=== PATIENT | male | born 1955 | race Caucasian/White ===

== ENCOUNTER 2018-09-25 16:30 | Inpatient (IN) | payer OTHER ==
[~2018-09-25] VITALS: Ht 177.8 cm; Wt 94.3 kg
[2018-09-25 17:05] LABS: BASO % 0 % (0-3); EOS # 0.1 x10^3/uL (0.0-0.7); EOS % 2 % (0-3); HEMATOCRIT 47.5 % (39.0-53.0); HEMOGLOBIN 15.1 g/dL (13.0-17.5); LYMPH # 0.8 x10^3/uL (1.0-4.8); LYMPH % 12 % (24-48); MEAN CORPUSCULAR HEMOGLOBIN 25 pg (25-35); MEAN CORPUSCULAR HGB CONC 32 g/dL (31-37); MEAN CORPUSCULAR VOLUME 77 fL (79-100); MONO # 0.3 x10^3/uL (0.0-1.1); MONO % 5 % (0-9); NEUT # 5.2 x10^3uL (1.8-7.7); NEUT % 81 % (31-73); PLATELET COUNT 176 x10^3/uL (140-400); RED BLOOD COUNT 6.16 x10^6/uL (4.30-5.70); RED CELL DISTRIBUTION WIDTH 17.4 % (11.5-14.5); WHITE BLOOD COUNT 6.4 x10^3/uL (4.0-11.0)
--- NOTE | 2018-09-25 17:11 | PHYS DOC ---
Past Medical History Past Medical History: Diabetes-Type II, High Cholesterol, Hypertension Past Surgical History: Tonsillectomy, Other Additional Past Surgical Histo: BACK,HAND,FOOT,ADENOIDS Alcohol Use: None Drug Use: None Adult General Chief Complaint Chief Complaint: CHEST PAIN [facility] HPI Patient is a 63 year old male who presents with of chest pain. Patient complaining of intermittent episodes of lower substernal and epigastric area pain for the last 2 days that usually repeated several times a day without relation to eating or activity or not eating. Patient complaining of aching pain without radiation, shortness of breath, nausea, palpitation, diaphoresis. Patient complaining of episodes of dizziness with severe pain. Patient rated his pain as 6/10. Patient denies history of chest pain and coronary artery disease. Patient has history of hypertension, dyslipidemia, diabetes mellitus and family history of coronary artery disease and denies smoking cigarettes or using alcohol or drugs. Review of Systems Review of Systems Constitutional: Denies fever or chills [] Eyes: Denies change in visual acuity, redness, or eye pain [] HENT: Denies nasal congestion or sore throat [] Respiratory: Denies cough or shortness of breath [] Cardiovascular: No additional information not addressed in HPI [] GI: Denies abdominal pain, nausea, vomiting, bloody stools or diarrhea [] : Denies dysuria or hematuria [] Musculoskeletal: Denies back pain or joint pain [] Integument: Denies rash or skin lesions [] Neurologic: Denies headache, focal weakness or sensory changes [] Endocrine: Denies polyuria or polydipsia [] All other systems were reviewed and found to be within normal limits, except as documented in this note. Current Medications Current Medications Current Medications Medications (Trade) Dose Ordered Sig/Angie Start Time Stop Time Status Last Admin Dose Admin Famotidine (Pepcid Vial) 20 mg 1X ONCE 09/25/18 18:30 09/25/18 18:31 DC Allergies Allergies Allergies Coded Allergies Type Severity Reaction Last Updated Verified Sulfa (Sulfonamide Antibiotics) Allergy Intermediate 09/25/18 Yes codeine Allergy Intermediate 09/25/18 Yes Physical Exam Physical Exam Constitutional: Well developed, well nourished, no acute distress, non-toxic appearance. [] HENT: Normocephalic, atraumatic, oropharynx moist. Eyes: PERRLA, EOMI, conjunctiva normal, no discharge. [] Neck: Normal range of motion, no tenderness, supple, no stridor. [] Cardiovascular:Heart rate regular rhythm, no murmur [] Lungs & Thorax: Bilateral breath sounds clear to auscultation [] Abdomen: Bowel sounds normal, soft, no tenderness, no masses, no pulsatile masses. [] Skin: Warm, dry, no erythema, no rash. [] Back: No tenderness, no CVA tenderness. [] Extremities: No tenderness, no cyanosis, no clubbing, ROM intact, no edema. [] Neurologic: Alert and oriented X 3, normal motor function, normal sensory function, no focal deficits noted. [] Psychologic: Affect normal, judgement normal, mood normal. [] Current Patient Data Vital Signs Vital Signs Date Time Temp Pulse Resp B/P (MAP) Pulse Ox O2 Delivery O2 Flow Rate FiO2 09/25/18 16:35 99.7 96 23 132/80 (97) 93 Room Air 99.7 Lab Values Laboratory Tests Test 09/25/18 16:45 White Blood Count 6.4 x10^3/uL (4.0-11.0) Red Blood Count 6.16 x10^6/uL (4.30-5.70) H Hemoglobin 15.1 g/dL (13.0-17.5) Hematocrit 47.5 % (39.0-53.0) Mean Corpuscular Volume 77 fL (79-100) L Mean Corpuscular Hemoglobin 25 pg (25-35) Mean Corpuscular Hemoglobin Concent 32 g/dL (31-37) Red Cell Distribution Width 17.4 % (11.5-14.5) H Platelet Count 176 x10^3/uL (140-400) Neutrophils (%) (Auto) 81 % (31-73) H Lymphocytes (%) (Auto) 12 % (24-48) L Monocytes (%) (Auto) 5 % (0-9) Eosinophils (%) (Auto) 2 % (0-3) Basophils (%) (Auto) 0 % (0-3) Neutrophils # (Auto) 5.2 x10^3uL (1.8-7.7) Lymphocytes # (Auto) 0.8 x10^3/uL (1.0-4.8) L Monocytes # (Auto) 0.3 x10^3/uL (0.0-1.1) Eosinophils # (Auto) 0.1 x10^3/uL (0.0-0.7) Basophils # (Auto) 0.0 x10^3/uL (0.0-0.2) Prothrombin Time 12.9 SEC (11.7-14.0) Prothrombin Time INR 1.0 (0.8-1.1) D-Dimer (Ceci) 0.49 ug/mlFEU (0.00-0.50) Sodium Level 136 mmol/L (136-145) Potassium Level 3.7 mmol/L (3.5-5.1) Chloride Level 99 mmol/L (98-107) Carbon Dioxide Level 26 mmol/L (21-32) Anion Gap 11 (6-14) Blood Urea Nitrogen 16 mg/dL (8-26) Creatinine 1.0 mg/dL (0.7-1.3) Estimated GFR (Cockcroft-Gault) 76.0 BUN/Creatinine Ratio 16 (6-20) Glucose Level 130 mg/dL (70-99) H Calcium Level 8.9 mg/dL (8.5-10.1) Total Bilirubin 0.6 mg/dL (0.2-1.0) Aspartate Amino Transferase (AST) 36 U/L (15-37) Alanine Aminotransferase (ALT) 67 U/L (16-63) H Alkaline Phosphatase 137 U/L (46-116) H Creatine Kinase 44 U/L (39-308) Troponin I Quantitative < 0.017 ng/mL (0.000-0.055) LM-Vsx-V-Type Natriuretic Peptide 30 pg/mL (0-124) Total Protein 8.0 g/dL (6.4-8.2) Albumin 3.6 g/dL (3.4-5.0) Albumin/Globulin Ratio 0.8 (1.0-1.7) L Lipase 198 U/L (73-393) Laboratory Tests 09/25/18 16:45 Laboratory Tests 09/25/18 16:45 EKG EKG EKG interpreted by me. EKG at 1636 showed normal sinus rhythm at rate of 93, left foley axis, normal MD and QT intervals, no acute ST and T-wave abnormalities. Radiology/Procedures Radiology/Procedures [facility] [address] [place] [address] IMAGING REPORT Signed PATIENT: JENNY MASON ACCOUNT: [id number] : 1955 LOCATION: ER AGE: 63 SEX: M EXAM STATUS: REG ER ORD. PHYSICIAN: JOSHUA MCDONOUGH MD REASON: intermittent episodes of epigastric pain PROCEDURE: ABDOMEN LTD ABDOMEN LTD History: Epigastric pain Comparison: None. Findings: Multiple sonographic images of the abdomen are submitted. There is no abnormality of the visualized pancreas. There is coarsening of the hepatic echotexture. Right lobe of liver measured 17.5 cm longitudinal. There is segmental visualization of the inferior vena cava. Right kidney measured 11.7 x 6 x 5.4 cm, no hydronephrosis. Gallbladder is present without intraluminal abnormality, wall thickening, pericholecystic fluid. Common bile duct is within normal limits at 0.3 cm. Impression: 1. There is hepatic steatosis. No other significant abnormality is demonstrated. Electronically signed by: Ramiro Montes MD (09/25/2018 5:21 PM) [id number] DICTATED and SIGNED BY: RAMIRO MONTES MD DATE: 09/25/181720 Chest x-ray interpreted by me and did not show acute finding. Course & Med Decision Making Course & Med Decision Making Pertinent Labs and Imaging studies reviewed. (See chart for details) Evaluation of patient in ER showed 63-year-old male patient with multiple cardiac risk factor and complaining of intermittent episodes of chest pain and sob sternal area for 2 days. Patient had unremarkable physical exam and labs except for mild elevation of liver enzymes. Patient requiring admission for further evaluation and treatment. Discussed with Dr. Hilton who is in agreement with admission. Discussed findings and plan with patient and family, who acknowledge understanding and agreement. Dragon Disclaimer Dragon Disclaimer This electronic medical record was generated, in whole or in part, using a voice recognition dictation system. Departure Departure Impression: Primary Impression: Acute chest pain Additional Impressions: Abnormal liver function tests Hepatic steatosis Disposition: ADMITTED INPATIENT (at 1834) Admitting Physician: Other (Dr. Hilton accepted admission at 1833) Condition: IMPROVED Referrals: FARZAD MILLER MD (PCP) Problem Qualifiers JOSHUA MCDONOUGH MD Sep 25, 2018 17:11
[2018-09-25 17:17] LABS: CALCIUM 8.9 mg/dL (8.5-10.1); POTASSIUM 3.7 mmol/L (3.5-5.1); PROTHROMBIN TIME PATIENT 12.9 SEC (11.7-14.0)
[2018-09-25 17:24] LABS: ALBUMIN 3.6 g/dL (3.4-5.0); ALBUMIN/GLOBULIN RATIO 0.8 (1.0-1.7); TOTAL BILIRUBIN 0.6 mg/dL (0.2-1.0)
--- NOTE | 2018-09-25 17:24 | RAD ---
ABDOMEN LTD History: Epigastric pain Comparison: None. Findings: Multiple sonographic images of the abdomen are submitted. There is no abnormality of the visualized pancreas. There is coarsening of the hepatic echotexture. Right lobe of liver measured 17.5 cm longitudinal. There is segmental visualization of the inferior vena cava. Right kidney measured 11.7 x 6 x 5.4 cm, no hydronephrosis. Gallbladder is present without intraluminal abnormality, wall thickening, pericholecystic fluid. Common bile duct is within normal limits at 0.3 cm. Impression: 1. There is hepatic steatosis. No other significant abnormality is demonstrated. Electronically signed by: Tawanda Leblanc MD (09/25/2018 5:21 PM) [id number]
[2018-09-25 17:34] LABS: D-DIMER 0.49 ug/mlFEU (0.00-0.50)
[2018-09-25] MEDS ORDERED: FAMOTIDINE 20 MG/2 ML VIAL IVP ONE (18:30)
[2018-09-25 20:05] VITALS: BP 122/77
[2018-09-25] MEDS ORDERED: LISI-338 PO (20:34)
[2018-09-25] MEDS ORDERED: ASPI-630 PO (20:34)
[2018-09-25] MEDS ORDERED: SIMV40TA3 PO (20:34)
[2018-09-25] MEDS ORDERED: DULA1.5P SQ (20:35)
[2018-09-25] MEDS ORDERED: GLIM2TAB2 PO (20:35)
[2018-09-25] MEDS ORDERED: EMPA25TA PO (20:35)
[2018-09-25] MEDS ORDERED: TEST200V3 IM (20:35)
[2018-09-25] MEDS ORDERED: METF750T2 PO (20:35)
[2018-09-25] MEDS ORDERED: SIMVASTATIN 40 MG TABLET. PO SCH (21:00)
[2018-09-25] MEDS ORDERED: METFORMIN HCL 750 MG PO SCH (21:00)
[2018-09-25] MEDS: HEPARIN for SUB-Q USE 5,000 UNIT/ML VIAL. SQ SCH (21:31)
[2018-09-25 23:00] VITALS: BP 125/74
[2018-09-26] VITALS (11 sets, daily range): BP systolic 97–145; BP diastolic 60–93
--- NOTE | 2018-09-26 00:51 | RAD ---
Chest AP portable at 1747 Reason for examination: Atraumatic chest pain at the mid sternum for 2 days. History of diabetes. Comparison is made to previous study dated 05/19/2015. The heart size is normal. Mediastinum is unremarkable. Lung ruth are clear. No acute bony abnormalities are seen. Impression: No acute cardiopulmonary disease. Electronically signed by: Yanet Chan MD (09/25/2018 11:08 PM) [facility]
[2018-09-26] MEDS: HEPARIN for SUB-Q USE 5,000 UNIT/ML VIAL. SQ SCH ×2 (06:00→14:00)
--- NOTE | 2018-09-26 06:31 | EKG ---
[facility] [address] [place] [address] Test Date: 2018-09-25 Test Time: 16:36:25 Pat Name: JENNY MASON Department: Room: 203 1 Gender: M Occupational Physician: : 1955 Requested By: JOSHUA MCDONOUGH Order Number: [id number] Reading MD: Bryson Avina Measurements Intervals [place] Rate: 93 P: 56 [place]: 176 QRS: -16 QRSD: 90 T: 30 QT: 322 QTc: 403 Interpretive Statements SINUS RHYTHM LEFTWARD AXIS Electronically Signed On 10-02-2018 13:00:24 CDT by Bryson Avina
--- NOTE | 2018-09-26 07:48 | PDOC1 ---
History and Physical Date of Admission Date of Admission DATE: 09/26/18 TIME: 07:47 Identification/Chief Complaint Chief Complaint Chest pain Source Source: Patient History of Present Illness History of Present Illness Patient is a 63 year old male w/ PMHx HTN, HLD, CTS, OA, DM who presents with of chest pain. Patient complaining of intermittent episodes of lower substernal and epigastric area pain for the last 2 days that usually repeated several times a day without relation to eating or activity or not eating. Patient complaining of aching pain without radiation, shortness of breath, nausea, palpitation, diaphoresis. Patient complaining of episodes of dizziness with severe pain. Patient rated his pain as 6/10. His first noticed symptoms when he was loading the car on Tuesday and bent over and clutched his chest. Symptoms improved and recurred throughout the day and into the next. Not always related to activity and unrelated to eating. Hgb 14.1, MCV 78, RDW 17.3, bili 0.6, AST 36, ALT 67, Alk Phos 137, lipase 198. Hepatic steatosis on US (w/ normal GB) and tender epigastrium during procedure. H/o constipation controlled by eating prunes. Has lost weight since starting Trulicity. No PUD history. No NSAID use, does take ASA 81mg QD. Going for cardiac cath today Past Medical History Cardiovascular: HTN Pulmonary: No pertinent hx CENTRAL NERVOUS SYSTEM: Carpal Tunnel Syndrome GI: Constipation Heme/Onc: No pertinent hx Hepatobiliary: No pertinent hx Psych: No pertinent hx Musculoskeletal: Osteoarthritis Infectious disease: No pertinent hx ENT: No pertinent hx Renal/: No pertinent hx Endocrine: Diabetes Dermatology: No pertinent hx Past Surgical History Past Surgical History: Tonsillectomy, Other (Right great toe amputation, traumatic) Family History Family History: Diabetes, Heart Disease, High Cholestrol, Hypertension Social History Smoke: No ALCOHOL: rare Drugs: None Current Problem List Problem List Problems Medical Problems: (1) Abnormal liver function tests Status: Acute (2) Acute chest pain Status: Acute (3) Hepatic steatosis Status: Acute Current Medications Current Medications Current Medications Famotidine (Pepcid Vial) 20 mg 1X ONCE IVP Last administered on 09/25/18at 19: 58; Start 09/25/18 at 18:30; Stop 09/25/18 at 18:31; Status DC Aspirin (Children'S Aspirin) 81 mg DAILY PO ; Start 09/26/18 at 09:00 Glimepiride (Amaryl) 2 mg BID94 PO ; Start 09/26/18 at 09:00 Non-Formulary Medication (Dulaglutide (Trulicity)) 1.5 mg WEEKLY SQ ; Start at 09:00; Status UNV Non-Formulary Medication (Empagliflozin (Jardiance)) 25 mg DAILY PO ; Start at 09:00; Status UNV Lisinopril (Prinivil) 5 mg DAILY PO ; Start 09/26/18 at 09:00 Non-Formulary Medication (Metformin Hcl (Metformin Hcl Er)) 750 mg TID PO ; Start 09/25/18 at 21:00; Status UNV Simvastatin (Zocor) 40 mg QHS PO Last administered on 09/25/18at 21:28; Start at 21:00 Testosterone Cypionate (Depo-Testosterone) 200 mg WEEKLY IM ; Start 10/02/18 at 09:00 Heparin Sodium (Porcine) (Heparin Sodium) 5,000 unit Q8HRS SQ Last administered on 09/26/18at 06:00; Start 09/25/18 at 22:00 Active Scripts Active Reported Trulicity (Dulaglutide) 1.5 Mg/0.5 Ml Pen.injctr 1.5 Mg SQ WEEKLY Jardiance (Empagliflozin) 25 Mg Tablet 25 Mg PO DAILY Testosterone Cypionate 200 Mg/1 Ml Vial 200 Mg IM WEEKLY Metformin Hcl Er (Metformin Hcl) 750 Mg Tab.er.24h 750 Mg PO TID Glimepiride 2 Mg Tablet 1 Tab PO BID94 Simvastatin 40 Mg Tablet 1 Tab PO QHS Aspirin 81 Mg Tab.chew 1 Tab PO DAILY Lisinopril 5 Mg Tablet 1 Tab PO DAILY Allergies Allergies: Coded Allergies: Sulfa (Sulfonamide Antibiotics) (Verified Allergy, Intermediate, 09/25/18) codeine (Verified Allergy, Intermediate, 09/25/18) ROS General: No: Chills, Night Sweats, Fatigue, Malaise, Appetite, Other PSYCHOLOGICAL ROS: No: Anxiety, Behavioral Disorder, Concentration difficultie , Decreased libido, Depression, Disorientation, Hallucinations, Hostility, Irritablity, Memory difficulties, Mood Swings, Obsessive thoughts, Physical abuse, Sexual abuse, Sleep disturbances, Suicidal ideation, Other Eyes: No Blurry vision, No Decreased vision, No Double vision, No Dry eyes, No Excessive tearing, No Eye Pain, No Itchy Eyes, No Loss of vision, No Photophobia , No Scotomata, No Uses contacts, No Uses glasses, No Other HEENT: No: Heacaches, Visual Changes, Hearing change, Nasal congestion, Nasal discharge, Oral lesions, Sinus pain, Sore Throat, Epistaxis, Sneezing, Snoring, Tinnitus, Vertigo, Vocal changes, Other ALLERGY AND IMMUNOLOGY: No: Hives, Insect Bite Sensitivity, Itchy/Watery Eyes, Nasal Congestion, Post Nasal Drip, Seasonal Allergies, Other Hematological and Lymphatic: No: Bleeding Problems, Blood Clots, Blood Transfusions, Brusing, Night Sweats, Pallor, Swollen Lymph Nodes, Other ENDOCRINE: No: Breast Changes, Galactorrhea, Hair Pattern Changes, Hot Flashes , Malaise/lethargy, Mood Swings, Palpitations, Polydipsia/polyuria, Skin Changes , Temperature Intolerance, Unexpected Weight Changes, Other Breast: No New/Changing Breast Lumps, No Nipple changes, No Nipple discharge, No Other Respiratory: No: Cough, Hemoptysis, Orthopnea, Pleuritic Pain, Shortness of breath, SOB with excertion, Sputum Changes, Stridor, Tachypnea, Wheezing, Other Cardiovascular: yes Chest Pain; No Palpitations, No Orthopnea, No Paroxysmal Noc. Dyspnea, No Edema, No Lt Headedness, No Other Gastrointestinal: Yes Nausea, Yes Abdominal Pain; No Vomiting, No Diarrhea, No Constipation, No Melena, No Hematochezia, No Other Genitourinary: No Dysuria, No Frequency, No Incontinence, No Hematuria, No Retention, No Discharge, No Urgency, No Pain, No Flank Pain, No Other, No , No , No , No , No , No , No Musculoskeletal: No Gait Disturbance, No Joint Pain, No Joint Stiffness, No Joint Swelling, No Muscle Pain, No Muscular Weakness, No Pain In:, No Swelling In:, No Other Neurological: No Behavorial Changes, No Bowel/Bladder ControlChng, No Confusion , No Dizziness, No Gait Disturbance, No Headaches, No Impaired Coord/balance, No Memory Loss, No Numbness/Tingling, No Seizures, No Speech Problems, No Tremors, No Visual Changes, No Weakness, No Other Skin: No Dry Skin, No Eczema, No Hair Changes, No Lumps, No Mole Changes, No Mottling, No Nail Changes, No Pruritus, No Rash, No Skin Lesion Changes, No Other, No Acne Physical Exam General: Alert, Oriented X3, Cooperative, No acute distress HEENT: Atraumatic, PERRLA, EOMI, Mucous membr. moist/pink Lungs: Clear to auscultation, Normal air movement Heart: S1S2, RRR, no gallops, no murmurs Abdomen: Normal bowel sounds, Soft, No tenderness, No hepatosplenomegaly, No masses Rectal Exam: not examined Extremities: No clubbing, No cyanosis, No edema, Normal pulses, No tenderness/ swelling Skin: No rashes, No breakdown, No significant lesion Neuro: Normal gait, Normal speech, Strength at 5/5 X4 ext, Normal tone, Sensation intact, Cranial nerves 3-12 NL, Reflexes 2+ Psych/Mental Status: Mental status NL, Mood NL Vitals Vitals Vital Signs Date Time Temp Pulse Resp B/P (MAP) Pulse Ox O2 Delivery O2 Flow Rate FiO2 09/26/18 03:17 97.8 89 16 97/60 (72) 96 Room Air 97.8 Labs Labs Laboratory Tests Test 09/25/18 16:45 09/25/18 20:45 09/26/18 03:25 White Blood Count 6.4 x10^3/uL (4.0-11.0) Red Blood Count 6.16 x10^6/uL (4.30-5.70) Hemoglobin 15.1 g/dL (13.0-17.5) Hematocrit 47.5 % (39.0-53.0) Mean Corpuscular Volume 77 fL (79-100) Mean Corpuscular Hemoglobin 25 pg (25-35) Mean Corpuscular Hemoglobin Concent 32 g/dL (31-37) Red Cell Distribution Width 17.4 % (11.5-14.5) Platelet Count 176 x10^3/uL (140-400) Neutrophils (%) (Auto) 81 % (31-73) Lymphocytes (%) (Auto) 12 % (24-48) Monocytes (%) (Auto) 5 % (0-9) Eosinophils (%) (Auto) 2 % (0-3) Basophils (%) (Auto) 0 % (0-3) Neutrophils # (Auto) 5.2 x10^3uL (1.8-7.7) Lymphocytes # (Auto) 0.8 x10^3/uL (1.0-4.8) Monocytes # (Auto) 0.3 x10^3/uL (0.0-1.1) Eosinophils # (Auto) 0.1 x10^3/uL (0.0-0.7) Basophils # (Auto) 0.0 x10^3/uL (0.0-0.2) Prothrombin Time 12.9 SEC (11.7-14.0) Prothromb Time International Ratio 1.0 (0.8-1.1) D-Dimer (Ceci) 0.49 ug/mlFEU (0.00-0.50) Sodium Level 136 mmol/L (136-145) Potassium Level 3.7 mmol/L (3.5-5.1) Chloride Level 99 mmol/L (98-107) Carbon Dioxide Level 26 mmol/L (21-32) Anion Gap 11 (6-14) Blood Urea Nitrogen 16 mg/dL (8-26) Creatinine 1.0 mg/dL (0.7-1.3) Estimated GFR (Cockcroft-Gault) 76.0 BUN/Creatinine Ratio 16 (6-20) Glucose Level 130 mg/dL (70-99) Calcium Level 8.9 mg/dL (8.5-10.1) Total Bilirubin 0.6 mg/dL (0.2-1.0) Aspartate Amino Transf (AST/SGOT) 36 U/L (15-37) Alanine Aminotransferase (ALT/SGPT) 67 U/L (16-63) Alkaline Phosphatase 137 U/L (46-116) Creatine Kinase 44 U/L (39-308) Troponin I Quantitative < 0.017 ng/mL (0.000-0.055) < 0.017 ng/mL (0.000-0.055) FN-Gjd-I-Type Natriuretic Peptide 30 pg/mL (0-124) Total Protein 8.0 g/dL (6.4-8.2) Albumin 3.6 g/dL (3.4-5.0) Albumin/Globulin Ratio 0.8 (1.0-1.7) Lipase 198 U/L (73-393) Glucose (Fingerstick) 94 mg/dL (70-99) Laboratory Tests Test 09/25/18 16:45 09/25/18 20:45 09/26/18 03:25 White Blood Count 6.4 x10^3/uL (4.0-11.0) Red Blood Count 6.16 x10^6/uL (4.30-5.70) Hemoglobin 15.1 g/dL (13.0-17.5) Hematocrit 47.5 % (39.0-53.0) Mean Corpuscular Volume 77 fL (79-100) Mean Corpuscular Hemoglobin 25 pg (25-35) Mean Corpuscular Hemoglobin Concent 32 g/dL (31-37) Red Cell Distribution Width 17.4 % (11.5-14.5) Platelet Count 176 x10^3/uL (140-400) Neutrophils (%) (Auto) 81 % (31-73) Lymphocytes (%) (Auto) 12 % (24-48) Monocytes (%) (Auto) 5 % (0-9) Eosinophils (%) (Auto) 2 % (0-3) Basophils (%) (Auto) 0 % (0-3) Neutrophils # (Auto) 5.2 x10^3uL (1.8-7.7) Lymphocytes # (Auto) 0.8 x10^3/uL (1.0-4.8) Monocytes # (Auto) 0.3 x10^3/uL (0.0-1.1) Eosinophils # (Auto) 0.1 x10^3/uL (0.0-0.7) Basophils # (Auto) 0.0 x10^3/uL (0.0-0.2) Prothrombin Time 12.9 SEC (11.7-14.0) Prothromb Time International Ratio 1.0 (0.8-1.1) D-Dimer (Ceci) 0.49 ug/mlFEU (0.00-0.50) Sodium Level 136 mmol/L (136-145) Potassium Level 3.7 mmol/L (3.5-5.1) Chloride Level 99 mmol/L (98-107) Carbon Dioxide Level 26 mmol/L (21-32) Anion Gap 11 (6-14) Blood Urea Nitrogen 16 mg/dL (8-26) Creatinine 1.0 mg/dL (0.7-1.3) Estimated GFR (Cockcroft-Gault) 76.0 BUN/Creatinine Ratio 16 (6-20) Glucose Level 130 mg/dL (70-99) Calcium Level 8.9 mg/dL (8.5-10.1) Total Bilirubin 0.6 mg/dL (0.2-1.0) Aspartate Amino Transf (AST/SGOT) 36 U/L (15-37) Alanine Aminotransferase (ALT/SGPT) 67 U/L (16-63) Alkaline Phosphatase 137 U/L (46-116) Creatine Kinase 44 U/L (39-308) Troponin I Quantitative < 0.017 ng/mL (0.000-0.055) < 0.017 ng/mL (0.000-0.055) IJ-Urb-M-Type Natriuretic Peptide 30 pg/mL (0-124) Total Protein 8.0 g/dL (6.4-8.2) Albumin 3.6 g/dL (3.4-5.0) Albumin/Globulin Ratio 0.8 (1.0-1.7) Lipase 198 U/L (73-393) Glucose (Fingerstick) 94 mg/dL (70-99) VTE Prophylaxis Ordered VTE Prophylaxis Devices: No VTE Pharmacological Prophylaxi: Yes Assessment/Plan Assessment/Plan A/P: Chest pain - trop nml, EKG SR no acute changes with typical UA features HTN - controlled HLD - Cont statin DM2 - metformin on hold, getting good effect with GLP-1, good candidate for an SGLT-2 Hepatic steatosis - likely related to DM, HLD, will monitor. 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
--- NOTE | 2018-09-26 07:48 | PDOC2 ---
LUCHO CARR MACHINE [employer]ER [employer] LASTER 09/26/18 0748: CARDIAC CONSULT DATE OF CONSULT Date of Consult DATE: 09/26/18 TIME: 07:43 REASON FOR CONSULT Reason for Consult: Chest pain REFERRING PHYSICIAN Referring Physician: Lida SOURCE Source: Chart review, Patient HISTORY OF PRESENT ILLNESS HISTORY OF PRESENT ILLNESS This is a pleasant 63 yo male admitted for complains of chest pain. He is an active 63 yo who is used to lifting 50 pounds arellano which he has not done in a week. Palm Tuesday this he was crutched over and was complains of midchest achiness. He also felt this discomfort on his neck and also with some nausea and dizziness. He is typically not the type of person that complains but several times since Tuesday he has not been feeling well. No past hx of CAD , arrhythmias, falls and recent injuries. No past VTE, recent long distance travel. No hx of bleeding or PUD. PAST MEDICAL HISTORY Cardiovascular: HTN, Hyperlipidemia CENTRAL NERVOUS SYSTEM: Carpal Tunnel Syndrome GI: No pertinent hx Heme/Onc: No pertinent hx Hepatobiliary: No pertinent hx Psych: No pertinent hx Musculoskeletal: low back pain, Osteoarthritis Rheumatologic: No pertinent hx Infectious disease: No pertinent hx ENT: No pertinent hx Renal/: No pertinent hx Endocrine: Diabetes (2), Other (hypogonadism) Dermatology: No pertinent hx PAST SURGICAL HISTORY Past Surgical History: Tonsillectomy, Other (x3 multiple back surgery; right big toe amputation; carpal tunnel release) FAMILY HISTORY Family History: Coronary Artery Disease (father; brother in his 40s) SOCIAL HISTORY Smoke: No (chews tobacco) ALCOHOL: none Drugs: None Lives: with Family CURRENT MEDICATIONS CURRENT MEDICATIONS Current Medications Medications (Trade) Dose Ordered Sig/Angie Route PRN Reason Start Time Stop Time Status Last Admin Dose Admin Famotidine (Pepcid Vial) 20 mg 1X ONCE IVP 09/25/18 18:30 09/25/18 18:31 DC 09/25/18 19:58 Simvastatin (Zocor) 40 mg QHS PO 09/25/18 21:00 09/25/18 21:28 Heparin Sodium (Porcine) (Heparin Sodium) 5,000 unit Q8HRS SQ 09/25/18 22:00 09/26/18 06:00 ALLERGIES ALLERGIES: Coded Allergies: Sulfa (Sulfonamide Antibiotics) (Verified Allergy, Intermediate, 09/26/18) codeine (Verified Allergy, Intermediate, 09/26/18) ROS Review of System 14 point ROS evaluated with pertinent positives noted per HPI PHYSICAL EXAM General: Alert, Oriented X3, Cooperative, No acute distress HEENT: Atraumatic, Mucous membr. moist/pink Lungs: Clear to auscultation, Normal air movement Heart: Regular rate (SR), Normal S1, Normal S2, No murmurs Abdomen: Soft, No tenderness Extremities: No cyanosis, No edema Skin: No breakdown, No significant lesion Neuro: Normal speech, Sensation intact Psych/Mental Status: Mental status NL, Mood NL MUSCULOSKELETAL: Osteoarthritic changes both hands VITALS VITALS Vital Signs Date Time Temp Pulse Resp B/P (MAP) Pulse Ox O2 Delivery O2 Flow Rate FiO2 09/26/18 03:17 97.8 89 16 97/60 (72) 96 Room Air 97.8 LABS Lab: Laboratory Tests Test 09/25/18 16:45 09/25/18 20:45 09/26/18 03:25 White Blood Count 6.4 x10^3/uL (4.0-11.0) Red Blood Count 6.16 x10^6/uL (4.30-5.70) Hemoglobin 15.1 g/dL (13.0-17.5) Hematocrit 47.5 % (39.0-53.0) Mean Corpuscular Volume 77 fL (79-100) Mean Corpuscular Hemoglobin 25 pg (25-35) Mean Corpuscular Hemoglobin Concent 32 g/dL (31-37) Red Cell Distribution Width 17.4 % (11.5-14.5) Platelet Count 176 x10^3/uL (140-400) Neutrophils (%) (Auto) 81 % (31-73) Lymphocytes (%) (Auto) 12 % (24-48) Monocytes (%) (Auto) 5 % (0-9) Eosinophils (%) (Auto) 2 % (0-3) Basophils (%) (Auto) 0 % (0-3) Neutrophils # (Auto) 5.2 x10^3uL (1.8-7.7) Lymphocytes # (Auto) 0.8 x10^3/uL (1.0-4.8) Monocytes # (Auto) 0.3 x10^3/uL (0.0-1.1) Eosinophils # (Auto) 0.1 x10^3/uL (0.0-0.7) Basophils # (Auto) 0.0 x10^3/uL (0.0-0.2) Prothrombin Time 12.9 SEC (11.7-14.0) Prothromb Time International Ratio 1.0 (0.8-1.1) D-Dimer (Ceci) 0.49 ug/mlFEU (0.00-0.50) Sodium Level 136 mmol/L (136-145) Potassium Level 3.7 mmol/L (3.5-5.1) Chloride Level 99 mmol/L (98-107) Carbon Dioxide Level 26 mmol/L (21-32) Anion Gap 11 (6-14) Blood Urea Nitrogen 16 mg/dL (8-26) Creatinine 1.0 mg/dL (0.7-1.3) Estimated GFR (Cockcroft-Gault) 76.0 BUN/Creatinine Ratio 16 (6-20) Glucose Level 130 mg/dL (70-99) Calcium Level 8.9 mg/dL (8.5-10.1) Total Bilirubin 0.6 mg/dL (0.2-1.0) Aspartate Amino Transf (AST/SGOT) 36 U/L (15-37) Alanine Aminotransferase (ALT/SGPT) 67 U/L (16-63) Alkaline Phosphatase 137 U/L (46-116) Creatine Kinase 44 U/L (39-308) Troponin I Quantitative < 0.017 ng/mL (0.000-0.055) < 0.017 ng/mL (0.000-0.055) EM-Xjm-A-Type Natriuretic Peptide 30 pg/mL (0-124) Total Protein 8.0 g/dL (6.4-8.2) Albumin 3.6 g/dL (3.4-5.0) Albumin/Globulin Ratio 0.8 (1.0-1.7) Lipase 198 U/L (73-393) Glucose (Fingerstick) 94 mg/dL (70-99) ASSESSMENT/PLAN ASSESSMENT/PLAN 1. Chest pain: trop nml, EKG SR no acute changes with typical UA features 2. HTN: controlled 3. HLP 4. DM2 5. Hepatic steatosis/obesity 6. Mild polycythemia with testosterone replacement therapy. 7. Family hx of premature CAD Recommendations 1. TTE, TSH, lipids 2. Hold metformin 3. C discussed, risks and benefits and agreeable to proceed. 4. Wt loss. 5. ASA, statin LAWRENCE RYAN MD 09/26/18 1552: CARDIAC CONSULT ASSESSMENT/PLAN ASSESSMENT/PLAN Patient seen and examined. Agree with LOCAL SALES ASSOCIATE's assessment and plan. Symptoms concerning for unstable angina. Agree with cardiac catheterization for definitive evaluation. Risks and benefits were explained and he is agreeable. Thank you for your consultation. LUCHO CARR APRN Sep 26, 2018 07:48 LAWRENCE RYAN MD Sep 26, 2018 15:52
[2018-09-26 07:49] LABS: HEMATOCRIT 44.8 % (39.0-53.0); HEMOGLOBIN 14.1 g/dL (13.0-17.5); RED BLOOD COUNT 5.78 x10^6/uL (4.30-5.70); RED CELL DISTRIBUTION WIDTH 17.3 % (11.5-14.5); WHITE BLOOD COUNT 4.7 x10^3/uL (4.0-11.0)
[2018-09-26 08:34] LABS: CHOLESTEROL/HDL RATIO 5.1
[2018-09-26] MEDS: GLIMEPIRIDE 2 MG TABLET. PO SCH ×2 (09:00→16:00)
[2018-09-26] MEDS ORDERED: ASPIRIN CHEWABLE 81 MG TABLET. PO SCH (09:00)
[2018-09-26] MEDS ORDERED: LISINOPRIL 5 MG TABLET. PO SCH (09:00)
[2018-09-26] MEDS ORDERED: NON FORMULARY ITEM (Empagliflozin (Jardiance) 25 MG) PO SCH (09:00)
--- NOTE | 2018-09-26 09:58 | CARD ---
MR#: [id number] Date of Study: 09/26/2018 Ordering Physician: LUCHO CARR, Referring Physician: ANKITA GUARDADO Tech: Bhumika Calderón RDCS APPROVED REPORT EXAM: Two-dimensional and M-mode echocardiogram with Doppler and color Doppler. Other Information Quality : GoodHR: 76bpm Rhythm : NSR INDICATION Chest Pain 2D DIMENSIONS RVDd3.6 (2.9-3.5cm)Left Atrium(2D)3.0 (1.6-4.0cm) IVSd1.3 (0.7-1.1cm)Aortic Root(2D)3.7 (2.0-3.7cm) LVDd4.2 (3.9-5.9cm)LVOT Diameter2.2 (1.8-2.4cm) PWd1.2 (0.7-1.1cm)LVDs2.8 (2.5-4.0cm) FS (%) 32.9 %SV48.1 ml LVEF(%)60.0 (>50%) M-Mode DIMENSIONS Left Atrium(MM)3.09 (2.5-4.0cm)Aortic Root3.68 (2.2-3.7cm) Aortic Valve AoV Peak Rocky.106.0cm/sAoV VTI17.1cm AO Peak GR.4.5mmHgLVOT Peak Rocky.66.8cm/s AO Mean GR.2mmHgAVA (VMAX)2.36cm2 REBEL (VTI)2.40cm2 Mitral Valve MV E Yfvxfzgh19.9cm/sMV DECEL [id number] MV A Pzawylfd17.7cm/sE/A Ratio1.1 MV A Zsyizprb257gw Pulmonary Valve PV Peak Gxblryqr30.6cm/s Tricuspid Valve TR P. Loxllwrc834aa/sRAP XCGRIRHJ1pwPq TR Peak Gr.87mzPcBOQE76bwLl LEFT VENTRICLE The left ventricle is normal size. There is mild concentric left ventricular hypertrophy. The left ve ntricular systolic function is normal. The Ejection Fraction is 55-60%. There is normal LV segmental wall motion. Transmitral Doppler flow pattern is Grade II-pseudonormal filling dynamics. RIGHT VENTRICLE The right ventricle is normal size. There is normal right ventricular wall thickness. The right ventr icular systolic function is normal. ATRIA The left atrium size is normal. The right atrium size is normal. The interatrial septum is intact wit h no evidence for an atrial septal defect or patent foramen ovale as noted on 2-D or Doppler imaging. AORTIC VALVE The aortic valve is thickened but opens well. The aortic valve is trileaflet. Doppler and Color Flow revealed no significant aortic regurgitation. There is no significant aortic valvular stenosis. There is no aortic valvular vegetation. MITRAL VALVE The mitral valve is normal in structure and function. There is no evidence of mitral valve prolapse. There is no mitral valve stenosis. Doppler and Color Flow revealed no mitral valve regurgitation note d. TRICUSPID VALVE The tricuspid valve is normal in structure and function. Doppler and Color Flow revealed trace tricus pid regurgitation. The PA pressure was estimated at 29 mmHg. There is no tricuspid valve prolapse or vegetation. There is no tricuspid valve stenosis. PULMONIC VALVE The pulmonary valve is normal in structure and function. Doppler and Color Flow revealed mild to mode rate pulmonic valvular regurgitation. There is no pulmonic valvular stenosis. GREAT VESSELS The aortic root is mildly enlarged at 3.7cm. The ascending aorta is Mildly dilated at 3.9cm. The IVC is normal in size and collapses >50% with inspiration. PERICARDIAL EFFUSION There is no evidence of significant pericardial effusion. Critical Notification Critical Value: No <Conclusion> The left ventricular systolic function is normal. The Ejection Fraction is 55-60%. There is normal LV segmental wall motion. Doppler and Color Flow revealed trace tricuspid regurgitation. The PA pressure was estimated at 29 mmHg. The ascending aorta is Mildly dilated at 3.9cm. There is no evidence of significant pericardial effusion. Signed by : Bryson Avina, Electronically Approved : 09/26/2018 09:58:07
[2018-09-26] MEDS ORDERED: IOHEXOL 300 MG/ML 100ML VIAL. ONE (10:26)
[2018-09-26] MEDS ORDERED: LIDOCAINE 1% PF 2 ML VIAL. ONE (10:26)
[2018-09-26] MEDS ORDERED: fentaNYL PF VIAL 100 MCG/2 ML VIAL ONE (11:28)
[2018-09-26] MEDS ORDERED: VERAPAMIL 5 MG/2 ML VIAL. ONE (11:28)
[2018-09-26] MEDS ORDERED: NITROGLYCERIN 200 MCG/2 ML SYRINGE FOR CATH/VASC LAB. ONE (11:28)
[2018-09-26] MEDS ORDERED: MIDAZOLAM HCL/PF 2 MG/2 ML VIAL. ONE ×2 (11:28→11:59)
[2018-09-26] MEDS ORDERED: HEPARIN for IV BOLUS 10,000 UNIT/10 ML VIAL. ONE (11:28)
[2018-09-26] MEDS ORDERED: HEPARIN for IV BOLUS 10,000 UNIT/10 ML VIAL. IART ONE (12:00)
[2018-09-26] MEDS ORDERED: fentaNYL PF VIAL 100 MCG/2 ML VIAL IV ONE (12:00)
[2018-09-26] MEDS ORDERED: NITROGLYCERIN 200 MCG/2 ML SYRINGE FOR CATH/VASC LAB. IART ONE (12:00)
[2018-09-26] MEDS ORDERED: IOHEXOL 300 MG/ML 50 ML VIAL. IART ONE (12:00)
[2018-09-26] MEDS ORDERED: VERAPAMIL 5 MG/2 ML VIAL. IART ONE (12:00)
[2018-09-26] MEDS ORDERED: MIDAZOLAM HCL/PF 2 MG/2 ML VIAL. IV ONE ×2 (12:00→12:15)
[2018-09-26] MEDS ORDERED: LIDOCAINE 1% PF 2 ML VIAL. INJ ONE (12:00)
[2018-09-26] MEDS ORDERED: CONTRAST GIVEN. MC PRN (12:00)
[2018-09-26] MEDS ORDERED: HEPARIN for IV BOLUS 10,000 UNIT/10 ML VIAL. IV ONE (12:15)
--- NOTE | 2018-09-26 12:27 | NUR ---
SS following for discharge planning. SS reviewed pt chart. Pt is from home with spouse and is currently requiring oxygen. No discharge needs noted at this time. SS will continue to follow for pending discharge needs.
--- NOTE | 2018-09-26 12:35 | CARD ---
MR#: [id number] Date of Study: 09/26/2018 Ordering Physician: LUCHO CARR, Referring Physician: ANKITA GUARDADO Tech: Darleen Magaña RTR APPROVED REPORT Technologist: Darleen Magaña RTR Nurse: Cristina Almaguer RN Procedure(s) performed: 1. Left heart catheterization, selective coronary angiography and left ventr iculography via right transradial approach 2. Instant wave free ratio (IFR) measurement to left anterior descending artery stenosis Moderate Sedation time: 40 minutes Fluoro time: 8.7 minutes Dose: 62 Gycm2 Contrast: 132 INDICATION The indication(s) include : unstable angina . CSHA Clinical Frailty Scale CSHA Clinical Frailty Scale: Very Fit Heart Failure Heart Failure: No PROCEDURE NARRATIVE After explaining the risks, benefits and alternative options, informed consent was obtained from jacque ent. Patient was brought to the cardiac Aircraft Refueller and right wrist was prepped and draped in the usual fashion after confirming a positive modified Michael's test. Arterial access was obtained in the rig t radial artery and a 6 [place] sheath was inserted. 6 [place] Elroy catheter was used to perform gina ective angiography of the left and right coronary arteries. 6 [place] pigtail catheter was used to pe rform left ventriculography. Since patient was found to have angiographically borderline significant stenosis involving the left anterior descending artery, a decision was made to assess physiologic si gnificance using Instant wave free ratio (IFR) measurement. The left main coronary artery was engage d with a 6 [place] XB 3.5 guide catheter and the lesion in mid LAD was crossed with a [place] verrata PressureWire. IFR measurement was made that was physiologically insignificant at 0.99. Hence no inter ventions were performed. Patient tolerated the procedure well. Hemostasis was achieved using TR band . There were no immediate complications. The following findings were noted. FINDINGS 1. Hemodynamics: Left ventricular end-diastolic pressure of 22 mmHg. No pullback gradient across th e aortic valve. 2. Left ventriculography: Normal left ventricle systolic function with ejection fraction estimated at 60%. No significant mitral regurgitation seen. 3. Coronary angiography: a. The left main coronary artery arose from the left sinus of Valsalva, gave rise to the left anteri or descending and left circumflex arteries and did not show any significant stenosis. b. The left anterior descending artery showed 50-60% stenosis in the midsegment there was physiologi екатерина insignificant based on IFR measurement of 0.99. c. The left circumflex artery did not show any significant stenosis. d. The right coronary artery was a large and dominant vessel arising from the right sinus of Valsalv a that did not show any significant stenosis. Conclusion 1. 50-60% stenosis involving left anterior descending artery, physiologically insignificant based on IFR measurement of 0.99. 2. Normal left ventricle systolic function with ejection fraction estimated at 60%. Recommendations Cardiovascular risk factor modification. Signed by : Bryson Avina, Electronically Approved : 09/26/2018 12:34:56
--- NOTE | 2018-09-26 13:37 | PDOC2 ---
GI CONSULT Reason For Consult: GERD HPI: HPI: 63 y/o male who hasn't been feeling well for a few weeks but worse since Tuesday. Some issues w/ fatigue, nausea, dizziness, and substernal "ache." His first noticed symptoms when he was loading the car on Tuesday and bent over and clutched his chest. Symptoms improved and recurred throughout the day and into the next. Not always related to activity and unrelated to eating. Hgb 14.1, MCV 78, RDW 17.3, bili 0.6, AST 36, ALT 67, Alk Phos 137, lipase 198. Hepatic steatosis on US (w/ normal GB). Cardiac cath showed LAD stenosis w/ plans for cardiovascular risk modification. Denies heartburn/reflux, dysphagia/odynophagia, vomiting, change in appetite, diarrhea, hematochezia, and melena. Denies abd pain; however, epigastrium was tender during ultrasound yesterday. H/o constipation controlled by eating prunes. Has lost weight since starting Trulicity. No previous EGD. Might have had a colonoscopy in his 20s but no repeat exam since. No GB, liver, pancreas, or PUD history. No NSAID use, does take ASA 81mg QD. He'd like to proceed w/ EGD this afternoon if possible. Has been NPO except for some sips of water. PMH: PMH: HTN, HLD, CTS, OA, DM tonsillectomy, back surgery, right great toe amputation, BCTR FH: Family History: CAD, Other (several relatives required esophageal dilation) Social History: Smoke: No (chews tobacco) ALCOHOL: none Drugs: None ROS: GEN: Denies fevers, chills, sweats HEENT: Denies blurred vision, sore throat CV: +chest pain RESP: Denies shortness of air, cough GI: Per HPI : Denies hematuria, dysuria ENDO: +weight loss NEURO: +dizziness MSK: Denies weakness, joint pain/swelling SKIN: Denies jaundice, pruritus Vitals: Vitals: Vital Signs Date Time Temp Pulse Resp B/P (MAP) Pulse Ox O2 Delivery O2 Flow Rate FiO2 09/26/18 12:47 72 20 145/85 (105) 98 Nasal Cannula 2.0 09/26/18 08:00 99.4 99.4 Labs: Labs: Laboratory Tests Test 09/25/18 16:45 09/25/18 20:45 09/26/18 03:25 09/26/18 07:52 White Blood Count 6.4 x10^3/uL (4.0-11.0) 4.7 x10^3/uL (4.0-11.0) Red Blood Count 6.16 x10^6/uL (4.30-5.70) 5.78 x10^6/uL (4.30-5.70) Hemoglobin 15.1 g/dL (13.0-17.5) 14.1 g/dL (13.0-17.5) Hematocrit 47.5 % (39.0-53.0) 44.8 % (39.0-53.0) Mean Corpuscular Volume 77 fL (79-100) 78 fL (79-100) Mean Corpuscular Hemoglobin 25 pg (25-35) 24 pg (25-35) Mean Corpuscular Hemoglobin Concent 32 g/dL (31-37) 31 g/dL (31-37) Red Cell Distribution Width 17.4 % (11.5-14.5) 17.3 % (11.5-14.5) Platelet Count 176 x10^3/uL (140-400) 172 x10^3/uL (140-400) Neutrophils (%) (Auto) 81 % (31-73) Lymphocytes (%) (Auto) 12 % (24-48) Monocytes (%) (Auto) 5 % (0-9) Eosinophils (%) (Auto) 2 % (0-3) Basophils (%) (Auto) 0 % (0-3) Neutrophils # (Auto) 5.2 x10^3uL (1.8-7.7) Lymphocytes # (Auto) 0.8 x10^3/uL (1.0-4.8) Monocytes # (Auto) 0.3 x10^3/uL (0.0-1.1) Eosinophils # (Auto) 0.1 x10^3/uL (0.0-0.7) Basophils # (Auto) 0.0 x10^3/uL (0.0-0.2) Prothrombin Time 12.9 SEC (11.7-14.0) Prothromb Time International Ratio 1.0 (0.8-1.1) D-Dimer (Ceci) 0.49 ug/mlFEU (0.00-0.50) Sodium Level 136 mmol/L (136-145) Potassium Level 3.7 mmol/L (3.5-5.1) Chloride Level 99 mmol/L (98-107) Carbon Dioxide Level 26 mmol/L (21-32) Anion Gap 11 (6-14) Blood Urea Nitrogen 16 mg/dL (8-26) Creatinine 1.0 mg/dL (0.7-1.3) Estimated GFR (Cockcroft-Gault) 76.0 BUN/Creatinine Ratio 16 (6-20) Glucose Level 130 mg/dL (70-99) Calcium Level 8.9 mg/dL (8.5-10.1) Total Bilirubin 0.6 mg/dL (0.2-1.0) Aspartate Amino Transf (AST/SGOT) 36 U/L (15-37) Alanine Aminotransferase (ALT/SGPT) 67 U/L (16-63) Alkaline Phosphatase 137 U/L (46-116) Creatine Kinase 44 U/L (39-308) Troponin I Quantitative < 0.017 ng/mL (0.000-0.055) < 0.017 ng/mL (0.000-0.055) NH-Tko-M-Type Natriuretic Peptide 30 pg/mL (0-124) Total Protein 8.0 g/dL (6.4-8.2) Albumin 3.6 g/dL (3.4-5.0) Albumin/Globulin Ratio 0.8 (1.0-1.7) Lipase 198 U/L (73-393) Glucose (Fingerstick) 94 mg/dL (70-99) 135 mg/dL (70-99) Triglycerides Level 277 mg/dL (0-150) Cholesterol Level 127 mg/dL (0-200) LDL Cholesterol, Calculated 47 mg/dL (0-100) VLDL Cholesterol, Calculated 55 mg/dL (0-40) Non-HDL Cholesterol Calculated 102 mg/dL (0-129) HDL Cholesterol 25 mg/dL (40-60) Cholesterol/HDL Ratio 5.1 Thyroid Stimulating Hormone (TSH) 0.623 uIU/mL (0.358-3.74) Allergies: Coded Allergies: Sulfa (Sulfonamide Antibiotics) (Verified Allergy, Intermediate, 09/25/18) codeine (Verified Allergy, Intermediate, 09/25/18) Medications: Current Medications Medications (Trade) Dose Ordered Sig/Angei Route PRN Reason Start Time Stop Time Status Last Admin Dose Admin Famotidine (Pepcid Vial) 20 mg 1X ONCE IVP 09/25/18 18:30 09/25/18 18:31 DC 09/25/18 19:58 Simvastatin (Zocor) 40 mg QHS PO 09/25/18 21:00 09/25/18 21:28 Heparin Sodium (Porcine) (Heparin Sodium) 5,000 unit Q8HRS SQ 09/25/18 22:00 09/26/18 06:00 Nitroglycerin (Nitroglycerin) 200 mcg 1X ONCE IART 09/26/18 12:00 09/26/18 12:01 DC 09/26/18 12:00 Verapamil HCl (Verapamil) 2.5 mg 1X ONCE IART 09/26/18 12:00 09/26/18 12:01 DC 09/26/18 12:00 Heparin Sodium (Porcine) (Heparin Sodium) 2,500 unit 1X ONCE IART 09/26/18 12:00 09/26/18 12:01 DC 09/26/18 12:00 Heparin Sodium/ Sodium Chloride (HEPARIN for ARTERIAL LINE FLUSH) 1,000 unit 1X ONCE IART 09/26/18 12:00 09/26/18 12:01 DC 09/26/18 12:00 Midazolam HCl (Versed) 2 mg 1X ONCE IV 09/26/18 12:00 09/26/18 12:01 DC 09/26/18 12:00 Fentanyl Citrate (Fentanyl 2ml Vial) 100 mcg 1X ONCE IV 09/26/18 12:00 09/26/18 12:01 DC 09/26/18 12:00 Iohexol (Omnipaque 300 Mg/ml) 50 ml 1X ONCE IART 09/26/18 12:00 09/26/18 12:01 DC 09/26/18 12:00 Lidocaine HCl (Xylocaine-Mpf 1% 2ml Vial) 2 ml 1X ONCE INJ 09/26/18 12:00 09/26/18 12:01 DC 09/26/18 12:00 Heparin Sodium (Porcine) (Heparin Sodium) 5,000 unit 1X ONCE IV 09/26/18 12:15 09/26/18 12:19 DC 09/26/18 12:15 Midazolam HCl (Versed) 2 mg 1X ONCE IV 09/26/18 12:15 09/26/18 12:19 DC 09/26/18 12:14 Imaging: Imaging: Abd US Impression: 1. There is hepatic steatosis. No other significant abnormality is demonstrated. CXR Impression: No acute cardiopulmonary disease. Echo <Conclusion> The left ventricular systolic function is normal. The Ejection Fraction is 55-60%. There is normal LV segmental wall motion. Doppler and Color Flow revealed trace tricuspid regurgitation. The PA pressure was estimated at 29 mmHg. The ascending aorta is Mildly dilated at 3.9cm. There is no evidence of significant pericardial effusion. Cardiac Cath Conclusion 1. 50-60% stenosis involving left anterior descending artery, physiologically insignificant based on IFR measurement of 0.99. 2. Normal left ventricle systolic function with ejection fraction estimated at 60%. *received 7500 units Heparin PE: GEN: NAD HEENT: Atraumatic, PERRL LUNGS: CTAB HEART: RRR ABD: NABS, S/ND, mild epigastric discomfort EXTREMITY: No edema SKIN: right wrist w/ splint post cath NEURO/PSYCH: A & O 3 A/P: A/P: Substernal/epigastric pain, nausea, dizziness, fatigue - cardiac cath as above Microcytosis, elevated RDW CRC screen - possibly done ~40 years ago H/o constipation - controlled w/ diet (prunes) Elevated AST and Alk Phos, hepatic steatosis DM - recent weight loss w/ Trulicity +tobacco -- Reviewed w/ Dr. Banegas - okay to proceed w/ EGD this afternoon if sheath removed and able to get into position. D/w cardiology, primary, RN, and GI lab. Stay NPO. ?PPI pending results Check iron profile considering microcytosis. Follow-up for outpt screening colonoscopy. Could also consider PIPIDA and/or GES as outpt if EGD unrevealing. SARITA PARISH Sep 26, 2018 13:37
[2018-09-26] MEDS ORDERED: IV RINGERS,LACTATED 1000ML 1,000 ML IV ONE (15:15)
[2018-09-26] MEDS ORDERED: LIDOCAINE 2% PF 5 ML VIAL. ONE (15:22)
[2018-09-26] MEDS ORDERED: PROPOFOL 20 ML IV ONE (15:22)
--- NOTE | 2018-09-26 15:53 | PDOC4 ---
Operative Note Operative Note EGD Meds propofol per anesthesia Pre-op dx epigastric abdominal pain Post-op dx non-erosive gastritis Plan resume diet Prilosec 40 mg daily for 2 weeks consider switching trulicity to alternative medication SALBADOR MCKEON MD Sep 26, 2018 15:53
[2018-09-26] MEDS ORDERED: PANTOPRAZOLE 40 MG TABLET.DR. PO SCH (16:30)
[2018-09-26] MEDS ORDERED: Pantoprazole PO (17:26)
[2018-09-26] MEDS ORDERED: NITR0.4T22 SL (17:26)
--- NOTE | 2018-09-26 17:29 | PDOC3 ---
Discharge Summary Visit Information Date of Admission: Sep 25, 2018 Date of Discharge: Sep 26, 2018 Admitting Diagnosis: Chest pain, transaminitis Final Diagnosis Problems Medical Problems: (1) Abnormal liver function tests Status: Acute (2) Acute chest pain Status: Acute (3) Hepatic steatosis Status: Acute Brief Hospital Course Allergies Allergies Coded Allergies Type Severity Reaction Last Updated Verified Sulfa (Sulfonamide Antibiotics) Allergy Intermediate 09/26/18 Yes codeine Allergy Intermediate 09/26/18 Yes Vital Signs Vital Signs Date Time Temp Pulse Resp B/P (MAP) Pulse Ox O2 Delivery O2 Flow Rate FiO2 09/26/18 16:49 97.4 84 20 145/93 (110) 94 Room Air 97.4 09/26/18 14:15 2.0 Lab Results Laboratory Tests Test 09/25/18 16:45 09/25/18 20:45 09/26/18 03:25 09/26/18 07:52 White Blood Count 6.4 x10^3/uL (4.0-11.0) 4.7 x10^3/uL (4.0-11.0) Red Blood Count 6.16 x10^6/uL (4.30-5.70) 5.78 x10^6/uL (4.30-5.70) Hemoglobin 15.1 g/dL (13.0-17.5) 14.1 g/dL (13.0-17.5) Hematocrit 47.5 % (39.0-53.0) 44.8 % (39.0-53.0) Mean Corpuscular Volume 77 fL (79-100) 78 fL (79-100) Mean Corpuscular Hemoglobin 25 pg (25-35) 24 pg (25-35) Mean Corpuscular Hemoglobin Concent 32 g/dL (31-37) 31 g/dL (31-37) Red Cell Distribution Width 17.4 % (11.5-14.5) 17.3 % (11.5-14.5) Platelet Count 176 x10^3/uL (140-400) 172 x10^3/uL (140-400) Neutrophils (%) (Auto) 81 % (31-73) Lymphocytes (%) (Auto) 12 % (24-48) Monocytes (%) (Auto) 5 % (0-9) Eosinophils (%) (Auto) 2 % (0-3) Basophils (%) (Auto) 0 % (0-3) Neutrophils # (Auto) 5.2 x10^3uL (1.8-7.7) Lymphocytes # (Auto) 0.8 x10^3/uL (1.0-4.8) Monocytes # (Auto) 0.3 x10^3/uL (0.0-1.1) Eosinophils # (Auto) 0.1 x10^3/uL (0.0-0.7) Basophils # (Auto) 0.0 x10^3/uL (0.0-0.2) Prothrombin Time 12.9 SEC (11.7-14.0) Prothromb Time International Ratio 1.0 (0.8-1.1) D-Dimer (Ceci) 0.49 ug/mlFEU (0.00-0.50) Sodium Level 136 mmol/L (136-145) Potassium Level 3.7 mmol/L (3.5-5.1) Chloride Level 99 mmol/L (98-107) Carbon Dioxide Level 26 mmol/L (21-32) Anion Gap 11 (6-14) Blood Urea Nitrogen 16 mg/dL (8-26) Creatinine 1.0 mg/dL (0.7-1.3) Estimated GFR (Cockcroft-Gault) 76.0 BUN/Creatinine Ratio 16 (6-20) Glucose Level 130 mg/dL (70-99) Calcium Level 8.9 mg/dL (8.5-10.1) Total Bilirubin 0.6 mg/dL (0.2-1.0) Aspartate Amino Transf (AST/SGOT) 36 U/L (15-37) Alanine Aminotransferase (ALT/SGPT) 67 U/L (16-63) Alkaline Phosphatase 137 U/L (46-116) Creatine Kinase 44 U/L (39-308) Troponin I Quantitative < 0.017 ng/mL (0.000-0.055) < 0.017 ng/mL (0.000-0.055) VN-Cli-I-Type Natriuretic Peptide 30 pg/mL (0-124) Total Protein 8.0 g/dL (6.4-8.2) Albumin 3.6 g/dL (3.4-5.0) Albumin/Globulin Ratio 0.8 (1.0-1.7) Lipase 198 U/L (73-393) Glucose (Fingerstick) 94 mg/dL (70-99) 135 mg/dL (70-99) Iron Level 38 ug/dL (65-175) Total Iron Binding Capacity 318 ug/dL (250-450) Iron Saturation 12 % (15-34) Triglycerides Level 277 mg/dL (0-150) Cholesterol Level 127 mg/dL (0-200) LDL Cholesterol, Calculated 47 mg/dL (0-100) VLDL Cholesterol, Calculated 55 mg/dL (0-40) Non-HDL Cholesterol Calculated 102 mg/dL (0-129) HDL Cholesterol 25 mg/dL (40-60) Cholesterol/HDL Ratio 5.1 Thyroid Stimulating Hormone (TSH) 0.623 uIU/mL (0.358-3.74) Test 09/26/18 16:46 Glucose (Fingerstick) 109 mg/dL (70-99) Laboratory Tests Test 09/25/18 20:45 09/26/18 03:25 09/26/18 07:52 09/26/18 16:46 Glucose (Fingerstick) 94 mg/dL (70-99) 135 mg/dL (70-99) 109 mg/dL (70-99) White Blood Count 4.7 x10^3/uL (4.0-11.0) Red Blood Count 5.78 x10^6/uL (4.30-5.70) Hemoglobin 14.1 g/dL (13.0-17.5) Hematocrit 44.8 % (39.0-53.0) Mean Corpuscular Volume 78 fL (79-100) Mean Corpuscular Hemoglobin 24 pg (25-35) Mean Corpuscular Hemoglobin Concent 31 g/dL (31-37) Red Cell Distribution Width 17.3 % (11.5-14.5) Platelet Count 172 x10^3/uL (140-400) Iron Level 38 ug/dL (65-175) Total Iron Binding Capacity 318 ug/dL (250-450) Iron Saturation 12 % (15-34) Troponin I Quantitative < 0.017 ng/mL (0.000-0.055) Triglycerides Level 277 mg/dL (0-150) Cholesterol Level 127 mg/dL (0-200) LDL Cholesterol, Calculated 47 mg/dL (0-100) VLDL Cholesterol, Calculated 55 mg/dL (0-40) Non-HDL Cholesterol Calculated 102 mg/dL (0-129) HDL Cholesterol 25 mg/dL (40-60) Cholesterol/HDL Ratio 5.1 Thyroid Stimulating Hormone (TSH) 0.623 uIU/mL (0.358-3.74) Brief Hospital Course Patient is a 63 year old male w/ PMHx HTN, HLD, CTS, OA, DM who presents with of chest pain. Patient complaining of intermittent episodes of lower substernal and epigastric area pain for the last 2 days that usually repeated several times a day without relation to eating or activity or not eating. Patient complaining of aching pain without radiation, shortness of breath, nausea, palpitation, diaphoresis. Patient complaining of episodes of dizziness with severe pain. Patient rated his pain as 6/10. His first noticed symptoms when he was loading the car on Tuesday and bent over and clutched his chest. Symptoms improved and recurred throughout the day and into the next. Not always related to activity and unrelated to eating. Hgb 14.1, MCV 78, RDW 17.3, bili 0.6, AST 36, ALT 67, Alk Phos 137, lipase 198. Hepatic steatosis on US (w/ normal GB) and tender epigastrium during procedure. H/o constipation controlled by eating prunes. Has lost weight since starting Trulicity. No PUD history. No NSAID use, does take ASA 81mg QD He was seen by cardiology, underwent ECHO and urgent catheterization, findings as below with some mild non-obstructive CAD, recommended to modify lifestyle, so GI was consulted, underwent EGD showing non-erosive gastritis, so ultimately was given PPI script for 2 weeks and recommendation to take some time off Trulicity and consider to restart on low dose victoza as he has an endocrinology appointment upcoming. Greater than 105 minutes spent on same day admit and discharge. A/P: Chest pain - trop nml, EKG SR no acute changes with typical UA features HTN - controlled HLD - Cont statin DM2 - metformin on hold, getting good effect with GLP-1, good candidate for an SGLT-2 Hepatic steatosis - likely related to DM, HLD, will monitor. GI consult for epigastric pain, EGD negative for PUD Obesity - losing weight on GLP-1, hold this for now Mild polycythemia - possibly 2/2 androgen replacement therapy Low serum testosterone - has been taking replacement therapy, can increase vascular disease risk in some studies, appropriate for cardiac w/u given his symptoms Cardiac Cath: 1. Hemodynamics: Left ventricular end-diastolic pressure of 22 mmHg. No pullback gradient across the aortic valve. 2. Left ventriculography: Normal left ventricle systolic function with ejection fraction estimated at 60%. No significant mitral regurgitation seen. 3. Coronary angiography: a. The left main coronary artery arose from the left sinus of Valsalva, gave rise to the left anterior descending and left circumflex arteries and did not show any significant stenosis. b. The left anterior descending artery showed 50-60% stenosis in the midsegment there was physiologically insignificant based on IFR measurement of 0.99. c. The left circumflex artery did not show any significant stenosis. d. The right coronary artery was a large and dominant vessel arising from the right sinus of Valsalva that did not show any significant stenosis. Conclusion 1. 50-60% stenosis involving left anterior descending artery, physiologically insignificant based on IFR measurement of 0.99. 2. Normal left ventricle systolic function with ejection fraction estimated at 60%. Echo - The left ventricular systolic function is normal. The Ejection Fraction is 55-60%. There is normal LV segmental wall motion. Doppler and Color Flow revealed trace tricuspid regurgitation. The PA pressure was estimated at 29 mmHg. The ascending aorta is Mildly dilated at 3.9cm. There is no evidence of significant pericardial effusion EGD - non-erosive gastritis Discharge Information Condition at Discharge: Improved Follow Up: Weeks Disposition/Orders: D/C to Home Scheduled Aspirin (Aspirin) 81 Mg Tab.chew, 1 TAB PO DAILY for , #30 Ref 3 (Reported) Entered as Reported by: Bob Saini on 09/25/182033 Last Taken: Unknown Dose on 09/25/18 Last Action: Continued on 09/25/182056 by Bob Saini Dulaglutide (Trulicity) 1.5 Mg/0.5 Ml Pen.injctr, 1.5 MG SQ WEEKLY for , ( Reported) Entered as Reported by: Bob Saini on 09/25/182034 Last Action: Converted on 09/25/182056 by Bob Saini Empagliflozin (Jardiance) 25 Mg Tablet, 25 MG PO DAILY for , (Reported) Entered as Reported by: Bob Saini on 09/25/182034 Last Taken: Unknown Dose on 09/25/18 Last Action: Converted on 09/25/182056 by Bob Saini Glimepiride (Glimepiride) 2 Mg Tablet, 1 TAB PO BID94 for , #30 Ref 5 ( Reported) Entered as Reported by: Bob Saini on 09/25/182034 Last Taken: Unknown Dose on 09/25/18 Last Action: Continued on 09/25/182056 by Bob Saini Lisinopril (Lisinopril) 5 Mg Tablet, 1 TAB PO DAILY for blood pressure, #30 Ref 5 (Reported) Entered as Reported by: Bob Saini on 09/25/182033 Last Taken: Unknown Dose on 09/25/18 Last Action: Converted on 09/25/182056 by Bob Saini Metformin Hcl (Metformin Hcl Er) 750 Mg Tab.er.24h, 750 MG PO TID for ANTI- DIABETIC, Ref 0 (Reported) Entered as Reported by: Bob Saini on 09/25/182034 Last Taken: Unknown Dose on 09/25/18 Last Action: Converted on 09/25/182056 by Bob Saini Simvastatin (Simvastatin) 40 Mg Tablet, 1 TAB PO QHS for , #30 Ref 5 (Reported ) Entered as Reported by: Bob Saini on 09/25/182033 Last Taken: Unknown Dose on 09/24/18 Last Action: Converted on 09/25/182056 by Bob Saini Testosterone Cypionate (Testosterone Cypionate) 200 Mg/1 Ml Vial, 200 MG IM WEEKLY for , (Reported) Entered as Reported by: Bob Saini on 09/25/182034 Last Taken: Unknown Dose on 09/21/18 Last Action: Converted on 09/25/182056 by Bob Saini [Pantoprazole] 40 MG TABLET.DR, 40 MG PO DAILYAC for 30 Days, #30 Ref 2 Prescribed by: RAY WESTBROOK MD on 09/26/18 1726 Scheduled PRN Nitroglycerin (NITROGLYCERIN SubLingual) 0.4 Mg Tab.subl, 0.4 MG SL PRN Q5MIN PRN for CHEST PAIN for 30 Days, #25 Prescribed by: RAY WESTBROOK MD on 09/26/18 1726 RAY WESTBROOK MD Sep 26, 2018 17:29
--- NOTE | 2018-09-26 18:59 | NUR ---
Discharge Note: JENNY MASON Discharge instructions and discharge home medications reviewed with Patient and a copy given. All questions have been answered and understanding verbalized.
[2018-10-02] MEDS ORDERED: NON FORMULARY ITEM (Dulaglutide (Trulicity) 1.5 MG) SQ SCH (09:00)
[2018-10-02] MEDS ORDERED: TESTOSTERONE CYPIONATE 200 MG/ML VIAL. IM SCH (09:00)
== END 2018-09-26 19:00 | disposition home or self-care (01) | DRG 287 ==
LOC: ER 16:30 → 2 NORTH 18:20
PROVIDERS: ADMIT Internal Medicine; ATTEND Internal Medicine
PROC: B2111ZZ Fluoroscopy of Multiple Coronary Arteries using Low Osmolar Contrast (ICD-10-PCS; 2018-09-26)
PROC: B2151ZZ Fluoroscopy of Left Heart using Low Osmolar Contrast (ICD-10-PCS; 2018-09-26)
PROC: 4A033BC Measurement of Arterial Pressure, Coronary, Percutaneous Approach (ICD-10-PCS; 2018-09-26)
PROC: 0DJ08ZZ Inspection of Upper Intestinal Tract, Via Natural or Artificial Opening Endoscopic (ICD-10-PCS; 2018-09-26)
PROC: 4A023N7 Measurement of Cardiac Sampling and Pressure, Left Heart, Percutaneous Approach (ICD-10-PCS; principal; 2018-09-26 15:30)
DX: I25.110 Atherosclerotic heart disease of native coronary artery with unstable angina pectoris (principal); K29.70 Gastritis, unspecified, without bleeding; E78.00 Pure hypercholesterolemia, unspecified; E11.9 Type 2 diabetes mellitus without complications; I10 Essential (primary) hypertension; E78.5 Hyperlipidemia, unspecified; K76.0 Fatty (change of) liver, not elsewhere classified; M19.90 Unspecified osteoarthritis, unspecified site; E66.9 Obesity, unspecified; D75.1 Secondary polycythemia; Z82.49 Family history of ischemic heart disease and other diseases of the circulatory system; Z88.5 Allergy status to narcotic agent; Z88.2 Allergy status to sulfonamides; Z89.411 Acquired absence of right great toe; Z83.3 Family history of diabetes mellitus; Z68.29 Body mass index [BMI] 29.0-29.9, adult; Z72.0 Tobacco use
CPT/HCPCS: 36415; 43235; 71045; 76705; 80053; 80061; 82550; 82962; 83540; 83550; 83690; 83880; 84443; 84484; 85025; 85027; 85379; 85610; 93005; 93306; 93458; 93571; 96374; 99152; 99153; C1769; C1887; C1892; J1644; J2001; J2250; J2704; J3010; J3490; J7120; Q9967; 99285-25

== ENCOUNTER → 2019-10-23 | Outpatient (CLI) | payer OTHER ==
[2018-09-26 16:49] VITALS: BP 145/93
[~2019-10-23] MED LIST: ASPI-630 PO; DULA1.5P SQ; EMPA25TA PO; GLIM2TAB7 PO; LISI-338 PO; METF750T39 PO; NITR0.4T22 SL; Pantoprazole PO; SIMV40TA18 PO; TEST200V3 IM
--- NOTE | 2019-10-23 08:41 | CARD ---
MR#: [id number] Date of Study: 10/23/2019 Ordering Physician: LAWRENCE RYAN, Referring Physician: LAWRENCE RYAN Tech: Isha Patino RDCS APPROVED REPORT EXAM: Two-dimensional and M-mode echocardiogram with Doppler and color Doppler. Other Information Quality : Good INDICATION Cardiac Disease: CAD 2D DIMENSIONS RVDd3.7 (2.9-3.5cm)Left Atrium(2D)3.6 (1.6-4.0cm) IVSd1.3 (0.7-1.1cm)Aortic Root(2D)3.4 (2.0-3.7cm) LVDd3.7 (3.9-5.9cm)LVOT Diameter2.3 (1.8-2.4cm) PWd1.3 (0.7-1.1cm)LVDs2.3 (2.5-4.0cm) FS (%) 38.4 %SV40.6 ml LVEF(%)60.0 (>50%) Aortic Valve AoV Peak Rocky.73.9cm/sAoV VTI12.0cm AO Peak GR.2.2mmHgLVOT Peak Rokcy.68.5cm/s AO Mean GR.1mmHgAVA (VMAX)3.99cm2 REBEL (VTI)4.30cm2 Mitral Valve MV E Baxgqdwm85.1cm/sMV DECEL LVTS871om MV A Igluduqj41.9cm/sE/A Ratio0.8 Tricuspid Valve TR P. Dsbaaqct521aj/sRAP MWQMGPNV0qgKm TR Peak Gr.23cxPwDMLE05nqUc Pulmonary Vein S1 Pwioffta12.8cm/sD2 Ltayksjd54.3cm/s LEFT VENTRICLE The left ventricle is normal size. There is mild concentric left ventricular hypertrophy. The left ve ntricular systolic function is normal. The Ejection Fraction is 55-60%. There is normal LV segmental wall motion. Transmitral Doppler flow pattern is Grade I-abnormal relaxation pattern. RIGHT VENTRICLE The right ventricle is normal size. The right ventricular systolic function is normal. ATRIA The left atrium size is normal. The right atrium is borderline dilated. The interatrial septum is int act with no evidence for an atrial septal defect or patent foramen ovale as noted on 2-D or Doppler i maging. AORTIC VALVE The aortic valve is calcified but opens well. Doppler and Color Flow revealed no significant aortic r egurgitation. There is no significant aortic valvular stenosis. MITRAL VALVE The mitral valve is normal in structure and function. Mitral annular calcification is mild. There is no evidence of mitral valve prolapse. There is no mitral valve stenosis. Doppler and Color Flow revea led no mitral valve regurgitation noted. TRICUSPID VALVE The tricuspid valve is normal in structure and function. Doppler and Color Flow revealed trace to mil d tricuspid regurgitation. The PA pressure was estimated at 25 mmHg. There is no tricuspid valve sten osis. PULMONIC VALVE The pulmonic valve is not well visualized. Doppler and Color Flow revealed mild pulmonic valvular reg urgitation. There is no pulmonic valvular stenosis. GREAT VESSELS The aortic root is normal in size. The ascending aorta is normal in size. The IVC is normal in size a nd collapses >50% with inspiration. PERICARDIAL EFFUSION There is no evidence of significant pericardial effusion. Critical Notification Critical Value: No <Conclusion> The left ventricular systolic function is normal. The Ejection Fraction is 55-60%. There is normal LV segmental wall motion. Transmitral Doppler flow pattern is Grade I-abnormal relaxation pattern. Doppler and Color Flow revealed trace to mild tricuspid regurgitation. The PA pressure was estimated at 25 mmHg. There is no evidence of significant pericardial effusion. Signed by : Lawrence Ryan, Electronically Approved : 10/23/2019 08:40:45
== END | disposition home or self-care (01) ==
LOC: ECHO 07:53
PROVIDERS: ATTEND Internal Medicine Cardiovascular Disease
DX: I08.8 Other rheumatic multiple valve diseases (principal); I25.10 Atherosclerotic heart disease of native coronary artery without angina pectoris
CPT/HCPCS: 93306

== ENCOUNTER → 2020-04-07 | Outpatient (CLI) | payer OTHER ==
[2018-09-26 16:49] VITALS: BP 145/93
[~2020-04-07] MED LIST changes: +REGADENOSON 0.4 MG/5 ML DISP.SYRIN. IV ONE
--- NOTE | 2020-04-07 12:55 | RAD ---
MR#: [id number] Date of Study: 04/07/2020 Ordering Physician: LAWRENCE RYAN Referring Physician: GOLD SANTANA Tech: RT James Rain) (N) APPROVED REPORT Test Type: Pharmacological Stress Nurse/Tech: Cristina Almaguer RN Test Indications: CAD Cardiac History: Hypertension, Diabetes Medications: See Electronic Medical Record Medical History: See Electronic Medical Record Resting ECG: SR Resting Heart Rate: 74 bpm Resting Blood Pressure: 112/68mmHg Pretest Chest Pain: No chest pain Nurse/Tech Notes S1S2, Lungs CTA Consent: The procedure was explained to the patient in lay terms. Informed consent was witnessed. Hany eout was entered into [employer]. History and Stress Test performed by RT James Rain) (N) Pharm. Details Pharmacologic stress testing was performed using 0.4mg per 5ml of regadenoson given intravenously ove r 7-10 seconds. Stress Symptoms Dyspnea, Nausea, Fatigue POST EXERCISE Reason for Termination: Infusion complete Max HR: 104 bpm Max Blood Pressure: 130/72mmHg Blood Pressure response to exercise: Normal blood pressure response during stress. Heart Rate response to exercise: WNL Chest Pain: No. Arrhythmia: No. ST Change: No. INTERPRETATION Stress EKG Conclusion: Baseline EKG showed sinus rhythm. No ischemic changes at peak stress. No arr hythmias. Imaging Protocol IMAGE PROTOCOL: Rest Tc-99m/stress Tc-99m 1 day Rest: Stress: Viability: Radiopharm.Tc99m GvgtcsptiCb01c Sestamibi Dose10.7mCi 31mCi Duration 13min. 13min. Img Date 04/07/2020 04/07/2020 Inj-Img Cexb57jys. 60min. Rest Admin Site:IV - Right AntecubitalAdministrator:RT Koffi (Mando)(N) Stress Admin Site: IV - Right AntecubitalAdministrator: RT Rylee RainR)(N) STRESS DATA End Diast. Vol.78.0mlLVEDV index BSA38.0ml End Syst. Vol.20.0mlLVESV index BSA9.0ml Myocardial Vjaj345.0gEject. Ozvqqtnq06.0% Stress Scores Regional WT1.00Summed WT6.00 Regional WM0.00Summed WM1.00 Study quality was good. Left Ventricular size was Normal at Rest and Stress. Lung uptake was . Left Ventricular ejection fraction is 73%. The rest and stress images show normal perfusion, normal contraction and thickening. LV Perf. Quant 17 Seg. SSS0.00 17 Seg. SRS0.00 17 Seg. SDS0.00 Stress Defect Extent (% LAD)0.00Rest Defect Extent (% LAD)0.00Rev. Defect Extent (% LAD)0.00 Stress Defect Extent (% LCX) 0.00Rest Defect Extent (% LCX)0.00Rev. Defect Extent (% LCX)0.00 Stress Defect Extent (% RCA)0.00Rest Defect Extent (% RCA)0.00Rev. Defect Extent (% RCA)0.00 Stress Defect Extent (% ROSALES)0.00Rest Defect Extent (% ROSALES)0.00Rev. Defect Extent (% ROSALES)0.00 Conclusion 1. Regadenoson cardioisotope stress test did not show any evidence of ischemia or infarct. 2. Normal left ventricular systolic function with ejection fraction calculated at 73%. 3. Low risk for cardiac events. Signed by : Lawrence Ryan, Electronically Approved : 04/07/2020 12:55:09
== END ==
LOC: NM 09:43
PROVIDERS: ATTEND Internal Medicine Cardiovascular Disease
DX: I25.10 Atherosclerotic heart disease of native coronary artery without angina pectoris (principal); I10 Essential (primary) hypertension
CPT/HCPCS: 78452; 93017; A9500; J2785

== ENCOUNTER → 2020-04-23 | Outpatient (CLI) | payer OTHER ==
[2018-09-26 16:49] VITALS: BP 145/93
[~2020-04-23] MED LIST changes: -REGADENOSON 0.4 MG/5 ML DISP.SYRIN. IV ONE
--- NOTE | 2020-04-23 09:30 | RAD ---
Bilateral lower extremity arterial duplex ultrasound 04/23/2020 INDICATION: Coronary artery disease. Bilateral lower extremity pain. COMPARISON STUDY: None Discussion: Ultrasound evaluation of the major arteries of the bilateral lower extremities was performed including color Doppler imaging spectral analysis. There is diffuse atherosclerotic vascular disease, most prominent in the common femoral arteries. No high-grade visual stenosis is identified. No focal elevation in velocity suggestive of hemodynamically significant stenosis is seen. No major arterial occlusion or aneurysm is identified. Waveform morphology is within acceptable limits throughout. IMPRESSION: Diffuse atherosclerotic vascular disease without ultrasound evidence of focal hemodynamically significant stenosis Electronically signed by: Jackson Rodriguez MD (04/23/2020 9:27 AM) [id number]
== END ==
LOC: US 06:55
PROVIDERS: ATTEND Internal Medicine Cardiovascular Disease
DX: I70.203 Unspecified atherosclerosis of native arteries of extremities, bilateral legs (principal); M79.606 Pain in leg, unspecified
CPT/HCPCS: 93925